=== PATIENT | female | born 1970 | race Caucasian/White ===

== ENCOUNTER 2016-06-18 15:59 | Emergency (ER) | payer MEDICAID ==
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
[2016-06-18] MEDS ORDERED: 0.9 % SODIUM CHLORIDE 1,000 ML BAG IV ONE (17:17)
[2016-06-18 17:47] LABS: BASO % 0.4 % (0-6); EOS % 4.8 % (0-6); GRAN % 57.1 % (47-80); HEMATOCRIT 33.7 % (35.0-47.0); HEMOGLOBIN 11.5 gm/dl (11.6-16.0); LYMPH % 31.6 % (16-45); MEAN CELL VOLUME 85.3 fl (81-97); MEAN CORPUSCULAR HEMOGLOBIN 29.1 pg (27-33); MEAN CORPUSCULAR HGB CONC 34.1 g/dl (32-36); MEAN PLATELET VOLUME 11.6 fl (7.4-10.4); MONO % 6.1 % (0-9); PLATELET COUNT 223 K/uL (130-400); RED BLOOD COUNT 3.95 M/uL (3.80-5.40)
[2016-06-18 17:56] LABS: ALBUMIN 4.2 gm/dL (3.5-5.0); ALKALINE PHOSPHATASE 66 U/L (38-126); ALT/SGPT 43 U/L (9-52); AST/SGOT 37 U/L (14-36); BILIRUBIN,TOTAL 0.54 mg/dL (0.2-1.3); BLOOD UREA NITROGEN 27 mg/dL (7-17); CREATININE 0.9 mg/dL (0.52-1.04); EST GLOMERULAR FILTRATION RATE > 60 ml/min; GLUCOSE,RANDOM 165 mg/dL (70-110); TOTAL PROTEIN 7.6 gm/dL (6.3-8.2)
== END 2016-06-18 19:00 | disposition home or self-care (01) ==
LOC: ER 15:59
DX: A08.4 Viral intestinal infection, unspecified (principal); E86.0 Dehydration; R42 Dizziness and giddiness; R11.0 Nausea; I50.9 Heart failure, unspecified; I10 Essential (primary) hypertension; Z87.891 Personal history of nicotine dependence; Z91.81 History of falling; E11.9 Type 2 diabetes mellitus without complications; Z79.4 Long term (current) use of insulin
CPT/HCPCS: 80048; 80076; 83735; 85025; 96360; 99284; J7030

== ENCOUNTER 2016-07-19 11:10 | Emergency (ER) | payer MEDICAID ==
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
[2016-07-19 12:28] LABS: BASO % 0.4 % (0-6); EOS % 3.2 % (0-6); GRAN % 62.6 % (47-80); HEMATOCRIT 35.3 % (35.0-47.0); HEMOGLOBIN 12.2 gm/dl (11.6-16.0); LYMPH % 28.2 % (16-45); MEAN CELL VOLUME 84.7 fl (81-97); MEAN CORPUSCULAR HEMOGLOBIN 29.3 pg (27-33); MEAN CORPUSCULAR HGB CONC 34.6 g/dl (32-36); MEAN PLATELET VOLUME 10.8 fl (7.4-10.4); MONO % 5.6 % (0-9); PLATELET COUNT 257 K/uL (130-400); RED BLOOD COUNT 4.17 M/uL (3.80-5.40); RED CELL DISTRIBUTION WIDTH 11.9 % (11.5-14.5)
[2016-07-19] MEDS: ASPIRIN 81 MG CHEWABLE TABLET PO ONE (12:29)
[2016-07-19 12:40] LABS: ANION GAP 7.8 (7-16); BLOOD UREA NITROGEN 24 mg/dL (7-17); CARBON DIOXIDE 29.2 mmol/L (22-30); CREATININE 0.9 mg/dL (0.52-1.04); EST GLOMERULAR FILTRATION RATE > 60 ml/min; GLUCOSE,RANDOM 135 mg/dL (70-110)
[2016-07-19 12:51] LABS: CKMB 0.4 ug/L (0-6)
[2016-07-19 12:52] LABS: TROPONIN I < 0.012 ng/mL (0.00-0.034)
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
== END 2016-07-19 13:23 | disposition home or self-care (01) ==
LOC: ER 11:10
DX: R55 Syncope and collapse (principal); E86.0 Dehydration; R11.0 Nausea; I42.9 Cardiomyopathy, unspecified; I10 Essential (primary) hypertension; Z87.891 Personal history of nicotine dependence; Z95.810 Presence of automatic (implantable) cardiac defibrillator
CPT/HCPCS: 80048; 82553; 84484; 85025; 85730; 93005; 93010; 99284

== ENCOUNTER 2016-09-06 12:57 | Observation (INO) | payer MEDICAID ==
[2016-09-06] MEDS ORDERED: 0.9 % SODIUM CHLORIDE 1,000 ML BAG IV ONE (13:31)
[2016-09-06] MEDS ORDERED: ONDANSETRON HCL IV 4 MG/2 ML VIAL IV ONE (13:31)
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
[2016-09-06 13:42] LABS: BASO % 0.3 % (0-6); EOS % 3.4 % (0-6); GRAN % 69.6 % (47-80); HEMATOCRIT 37.4 % (35.0-47.0); HEMOGLOBIN 12.4 gm/dl (11.6-16.0); LYMPH % 21.6 % (16-45); MEAN CELL VOLUME 83.3 fl (81-97); MEAN CORPUSCULAR HEMOGLOBIN 27.6 pg (27-33); MEAN CORPUSCULAR HGB CONC 33.2 g/dl (32-36); MEAN PLATELET VOLUME 11.5 fl (7.4-10.4); MONO % 5.1 % (0-9); PLATELET COUNT 273 K/uL (130-400); RED BLOOD COUNT 4.49 M/uL (3.80-5.40); RED CELL DISTRIBUTION WIDTH 12.4 % (11.5-14.5); WHITE BLOOD COUNT W/O DIFF 9.3 K/uL (4.2-12.2)
[2016-09-06 14:02] LABS: ALBUMIN 4.1 gm/dL (3.5-5.0); ANION GAP 12.3 (7-16); BILIRUBIN,TOTAL 0.8 mg/dL (0.2-1.3); CARBON DIOXIDE 21.7 mmol/L (22-30); CREATININE 1.1 mg/dL (0.52-1.04); TOTAL PROTEIN 7.4 gm/dL (6.3-8.2)
[2016-09-06] MEDS ORDERED: ONDANSETRON HCL IV 4 MG/2 ML VIAL IVP ONE (14:04)
[2016-09-06 14:28] LABS: URINE APPEARANCE CLEAR; URINE BILIRUBIN SMALL (NEGATIVE); URINE BLOOD TRACE-I (NEGATIVE); URINE COLOR YELLOW; URINE GLUCOSE (UA) NEGATIVE (NEGATIVE); URINE KETONE NEGATIVE (NEGATIVE); URINE LEUKOCYTE ESTERASE NEGATIVE (NEGATIVE); URINE NITRITE NEGATIVE (NEGATIVE)
[2016-09-06 14:29] LABS: HCG,QUALITATIVE URINE NEGATIVE (NEGATIVE)
[2016-09-06 14:34] LABS: URINE BACTERIA NONE SEEN; URINE EPITHELIAL CELLS NONE SEEN (FEW); URINE WBC 0 - 2 (0-2/hpf)
[2016-09-06] MEDS ORDERED: SUCRALFATE 1 G/10 ML UD PO ONE (14:48)
[2016-09-06] MEDS ORDERED: ACETAMINOPHEN 500 MG TABLET PO PRN (17:29)
[2016-09-06] MEDS ORDERED: GLIPIZIDE 5 MG TABLET PO SCH (17:29)
[2016-09-06] MEDS ORDERED: 0.9 % SODIUM CHLORIDE 1000ML 1,000 ML IV PRN ×2 (17:29→20:26)
[2016-09-06] MEDS ORDERED: ONDANSETRON HCL IV 4 MG/2 ML VIAL IVP PRN (17:29)
[2016-09-06] MEDS ORDERED: MORPHINE SULFATE 5 MG/ML PFS IVP PRN (17:30)
[2016-09-06] MEDS ORDERED: LEVEMIR FLEXTOUCH 100 UNIT/ML INSULIN PEN SQ SCH (18:00)
[2016-09-06] MEDS: DICYCLOMINE HCL 10 MG/ML AMPUL IM SCH (18:12)
[2016-09-06] MEDS: CARVEDILOL 12.5 MG TABLET PO SCH (22:32)
[2016-09-07] MEDS: DICYCLOMINE HCL 10 MG/ML AMPUL IM SCH (01:16)
[2016-09-07] MEDS ORDERED: ZINC OXIDE 28.35 GM TUBE TOP PRN (01:51)
[2016-09-07 06:37] LABS: BASO % 0.3 % (0-6); EOS % 4.5 % (0-6); GRAN % 62.8 % (47-80); HEMATOCRIT 35.7 % (35.0-47.0); HEMOGLOBIN 11.8 gm/dl (11.6-16.0); MEAN CELL VOLUME 84.4 fl (81-97); MEAN CORPUSCULAR HEMOGLOBIN 27.9 pg (27-33); MEAN CORPUSCULAR HGB CONC 33.1 g/dl (32-36); MEAN PLATELET VOLUME 11.6 fl (7.4-10.4); MONO % 5.4 % (0-9); PLATELET COUNT 238 K/uL (130-400); RED BLOOD COUNT 4.23 M/uL (3.80-5.40); RED CELL DISTRIBUTION WIDTH 12.6 % (11.5-14.5); WHITE BLOOD COUNT W/O DIFF 7.7 K/uL (4.2-12.2)
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
[2016-09-07 06:53] LABS: ALB/GLOB RATIO 1.2 (1.1-1.8); ALBUMIN 3.7 gm/dL (3.5-5.0); ALT/SGPT 77 U/L (9-52); ANION GAP 8.7 (7-16); AST/SGOT 59 U/L (14-36); BILIRUBIN,TOTAL 0.77 mg/dL (0.2-1.3); BLOOD UREA NITROGEN 29 mg/dL (7-17); CARBON DIOXIDE 21.3 mmol/L (22-30); CREATININE 0.9 mg/dL (0.52-1.04); EST GLOMERULAR FILTRATION RATE > 60 ml/min; GLUCOSE,RANDOM 91 mg/dL (70-110); TOTAL PROTEIN 6.7 gm/dL (6.3-8.2)
[2016-09-07 06:58] LABS: ALKALINE PHOSPHATASE 113 U/L (38-126)
[2016-09-07] MEDS: CARVEDILOL 12.5 MG TABLET PO SCH (09:45)
[2016-09-07] MEDS ORDERED: LANTUS SC SCH (10:00)
[2016-09-07] MEDS ORDERED: PANTOPRAZOLE SODIUM IV 40 MG VIAL IV SCH (10:00)
[2016-09-07] MEDS ORDERED: GLIPIZIDE 5 MG TABLET PO SCH (10:00)
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
[2016-09-07] MEDS: DICYCLOMINE HCL 10 MG CAPSULE PO SCH ×2 (11:42→19:09)
[2016-09-07] MEDS ORDERED: SIMETHICONE 80 MG TAB.CHEW PO ONE (13:07)
--- NOTE | 2016-09-11 07:49 | CT SCAN REPORT ---
EXAM: ABDOMEN AND PELVIS CT WITHOUT CONTRAST HISTORY: NAUSEA, VOMITING, DIARRHEA FOR THREE DAYS. PRIOR CHOLECYSTECTOMY AND APPENDECTOMY. TECHNIQUE: Contiguous axial images from the lung bases to the symphysis pubis were obtained without IV contrast. Comparison: Abdomen and pelvis CT 02/22/16. FINDINGS: The lung bases are clear. Evaluation of the solid abdominal visceral organs is compromised due to lack of IV contrast, however, the liver, spleen, kidneys, adrenals, and pancreas are unremarkable. The gallbladder is surgically absent. The visualized loops of small and large bowel are of normal caliber with no bowel wall thickening. Minimal fecal material throughout the colon. Normal appendix in the right lower quadrant. Mild aortoiliac calcification. Small, but conspicuous periaortic lymph nodes unchanged from 2014 measuring up to 9 x 9 mm likely incidental. No ascites. The osseous structures reveal no lytic or blastic lesion. IMPRESSION: 1. NO ACUTE PROCESS OF THE ABDOMEN OR PELVIS. LITTLE CHANGE FROM PRIOR STUDIES. 2. STATUS POST CHOLECYSTECTOMY. JOB NUMBER: [id number] MTDD
== END 2016-09-07 20:30 | disposition home or self-care (01) ==
LOC: ER 12:57 → MEDSURG 17:15
PROVIDERS: ADMIT Family Medicine; ATTEND Family Medicine
DX: E86.0 Dehydration (principal); K52.9 Noninfective gastroenteritis and colitis, unspecified; E11.9 Type 2 diabetes mellitus without complications; Z79.4 Long term (current) use of insulin; I42.9 Cardiomyopathy, unspecified; I50.9 Heart failure, unspecified; Z95.810 Presence of automatic (implantable) cardiac defibrillator; Z79.84 Long term (current) use of oral hypoglycemic drugs; R11.2 Nausea with vomiting, unspecified
CPT/HCPCS: 36416; 74176; 80048; 80053; 80076; 81001; 81025; 82272; 82948; 83690; 84484; 85025; 87425; 87427; 87493; 89055; 96361; 96374; 99220; 99285; C9113; J2405; J7030

== ENCOUNTER 2017-04-12 01:19 | Emergency (ER) | payer MEDICAID ==
[2017-04-12] MEDS ORDERED: 0.9 % SODIUM CHLORIDE 1,000 ML BAG IV ONE ×2 (01:27→03:20)
[2017-04-12] MEDS ORDERED: ONDANSETRON HCL IV 4 MG/2 ML VIAL IVP ONE (01:30)
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
[2017-04-12 01:48] LABS: BASO % 0.3 % (0-6); EOS % 2.9 % (0-6); GRAN % 54.6 % (47-80); HEMATOCRIT 34.5 % (35.0-47.0); HEMOGLOBIN 11.7 gm/dl (11.6-16.0); LYMPH % 36.5 % (16-45); MEAN CELL VOLUME 86.9 fl (81-97); MEAN CORPUSCULAR HEMOGLOBIN 29.5 pg (27-33); MEAN CORPUSCULAR HGB CONC 33.9 g/dl (32-36); MEAN PLATELET VOLUME 11.2 fl (7.4-10.4); MONO % 5.7 % (0-9); PLATELET COUNT 256 K/uL (130-400); RED BLOOD COUNT 3.97 M/uL (3.80-5.40); RED CELL DISTRIBUTION WIDTH 12.4 % (11.5-14.5); WHITE BLOOD COUNT W/O DIFF 8.7 K/uL (4.2-12.2)
[2017-04-12 01:57] LABS: BILIRUBIN,TOTAL < 0.20 mg/dL (0.2-1.0); BLOOD UREA NITROGEN 24 mg/dL (6-20); EST GLOMERULAR FILTRATION RATE > 60 mL/min
[2017-04-12 01:58] LABS: TOTAL PROTEIN 7.2 g/dL (6.6-8.7)
[2017-04-12 01:59] LABS: GLUCOSE,RANDOM 334 mg/dL (74-109)
[2017-04-12 02:00] LABS: INR 0.93; PARTIAL THROMBOPLASTIN TIME 23.3 SECONDS (24.5-39.1)
[2017-04-12 02:02] LABS: ALB/GLOB RATIO 1.1 (1.1-1.8); ALBUMIN 3.7 g/dL (4.0-5.0); ALKALINE PHOSPHATASE 71 U/L (35-104); ALT/SGPT 24 U/L (<33); AST/SGOT 33 U/L (10.0-35.0); LIPASE 35 U/L (13-60)
[2017-04-12 03:14] LABS: URINE APPEARANCE CLEAR; URINE BILIRUBIN NEGATIVE (NEGATIVE); URINE BLOOD SMALL (NEGATIVE); URINE COLOR YELLOW; URINE KETONE NEGATIVE (NEGATIVE); URINE LEUKOCYTE ESTERASE NEGATIVE (NEGATIVE); URINE NITRITE NEGATIVE (NEGATIVE); URINE UROBILINOGEN 0.2 E.U./dL (0.20 - 1.00)
[2017-04-12 03:15] LABS: URINE BACTERIA NONE SEEN; URINE EPITHELIAL CELLS 0 - 2 (FEW); URINE WBC 0 - 2 (0-2/hpf)
[2017-04-12 03:20] LABS: AMPHETAMINE SCREEN URINE NOT DETECTED; BARBITURATE SCREEN URINE NOT DETECTED; BENZODIAZEPINE SCREEN URINE NOT DETECTED; COCAINE SCREEN URINE NOT DETECTED; METHADONE SCREEN URINE NOT DETECTED; METHAMPHETAMINE SCREEN NOT DETECTED; OPIATE SCREEN URINE NOT DETECTED; OXYCODONE SCREEN URINE NOT DETECTED; PHENCYCLIDINE SCREEN URINE NOT DETECTED; PROPOXYPHENE SCREEN URINE NOT DETECTED; THC SCREEN URINE NOT DETECTED; TRICYCLIC ANTIDEPRESSANT SCRN NOT DETECTED
[2017-04-12] MEDS ORDERED: TRAMADOL HCL 50 MG TABLET PO ONE (03:26)
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
--- NOTE | 2017-04-12 09:53 | RADIOLOGY REPORT ---
EXAM: LEFT FOOT HISTORY: PAIN. TECHNIQUE: Three views of the left foot were obtained. Comparison: None. Encounter: Initial. FINDINGS: Negative for acute fracture or dislocation. Hallux valgus deformity with minor degenerative change of the great toe. Small calcaneal spurs. The soft tissues are unremarkable. IMPRESSION: NO ACUTE OSSEOUS ABNORMALITY. JOB NUMBER: [id number] [facility]
--- NOTE | 2017-04-12 10:16 | CT SCAN REPORT ---
EXAM: CT OF THE ABDOMEN AND PELVIS WITHOUT CONTRAST HISTORY: NAUSEA. TECHNIQUE: CT of the abdomen and pelvis was performed without oral or IV contrast. This limits evaluation of the solid visceral organs and bowel. Comparison: 09/06/16 CT. FINDINGS: Limited evaluation of the lung bases is unremarkable. The osseous structures are grossly intact. The liver, spleen, adrenal glands, pancreas, and kidneys are unremarkable. Status post cholecystectomy. No gross evidence for bowel obstruction. Normal appendix. Abundant stool in the colon. No free air or free fluid. IMPRESSION: NEGATIVE FOR ACUTE INTRAABDOMINAL/PELVIC PROCESS. J[facility]BER: [id number] [facility]
--- NOTE | 2017-04-12 10:18 | CT SCAN REPORT ---
EXAM: CT OF THE CERVICAL SPINE HISTORY: JAW PAIN AND HEAD PAIN. TECHNIQUE: Axial CT images of the cervical spine were obtained with coronal and sagittal reconstructions. Comparison: MRI cervical spine 04/17/15. FINDINGS: Evaluation of spinal canal contents limits due to CT technique, however, the vertebral body height and alignment is preserved. The atlantoaxial space is preserved. The lateral masses are not displaced. The disk spaces are maintained. The surrounding soft tissues are unremarkable. IMPRESSION: UNREMARKABLE CT OF THE CERVICAL SPINE. [facility]BER: [id number] [facility]
--- NOTE | 2017-04-12 10:20 | CT SCAN REPORT ---
EXAM: CT OF THE BRAIN WITHOUT CONTRAST HISTORY: HEADACHE. TECHNIQUE: CT of the brain without contrast was obtained. Comparison: None. FINDINGS: The globes are intact. There is a polyp of the left maxillary sinus. No displaced or depressed skull fracture. No intra or extraaxial hemorrhage. CT is limited for the evaluation of acute infarct. No CT evidence for large or territorial acute infarct. No mass or midline shift. IMPRESSION: NEGATIVE FOR ACUTE INTRACRANIAL ABNORMALITY. [facility]BER: [id number] [facility]
--- NOTE | 2017-04-12 10:23 | CT SCAN REPORT ---
EXAM: CT OF THE FACIAL BONES HISTORY: PAIN. TECHNIQUE: Axial CT images of the facial bones were obtained with coronal and sagittal reconstructions. Comparison: None. FINDINGS: The globes are intact. There is a polyp of the left maxillary sinus. The paranasal sinuses are otherwise well aerated. Hypoplasia of the frontal sinuses is noted. There are no air fluid levels. No bony destructive or expansile process. Negative for facial bone fracture. The surrounding soft tissues are unremarkable. Multiple dental caries are noted. Correlate with dental exam. IMPRESSION: NEGATIVE FOR FACIAL BONE FRACTURE. MULTIPLE DENTAL CARIES. POLYP OF THE LEFT MAXILLARY SINUS. [facility]BER: [id number] [facility]
== END 2017-04-12 04:00 | disposition home or self-care (01) ==
LOC: ER 01:19
DX: S92.902A Unspecified fracture of left foot, initial encounter for closed fracture (principal); S00.93XA Contusion of unspecified part of head, initial encounter; S20.221A Contusion of right back wall of thorax, initial encounter; S00.83XA Contusion of other part of head, initial encounter; S10.93XA Contusion of unspecified part of neck, initial encounter; E83.119 Hemochromatosis, unspecified; R11.0 Nausea; I50.9 Heart failure, unspecified; I10 Essential (primary) hypertension; E11.9 Type 2 diabetes mellitus without complications; Z79.4 Long term (current) use of insulin; Z87.891 Personal history of nicotine dependence; E86.0 Dehydration; W10.9XXA Fall (on) (from) unspecified stairs and steps, initial encounter; Y92.009 Unspecified place in unspecified non-institutional (private) residence as the place of occurrence of the external cause; Z95.0 Presence of cardiac pacemaker
CPT/HCPCS: 99284 ×2; 96374; 96361; 83690; 85025; 85730; 85610; 80053; 81001; 80305; 73630; 72125; 70450; 70486; 74176; 93005; 93010; J2405; J7030

== ENCOUNTER 2017-11-11 17:25 | Emergency (ER) | payer MEDICAID ==
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
[2017-11-11 18:45] LABS: URINE APPEARANCE CLEAR; URINE BILIRUBIN NEGATIVE (NEGATIVE); URINE BLOOD SMALL (NEGATIVE); URINE COLOR YELLOW; URINE GLUCOSE (UA) NEGATIVE (NEGATIVE); URINE KETONE NEGATIVE (NEGATIVE); URINE LEUKOCYTE ESTERASE SMALL (NEGATIVE); URINE NITRITE NEGATIVE (NEGATIVE); URINE UROBILINOGEN 0.2 E.U./dL (0.20 - 1.00)
[2017-11-11 18:59] LABS: BLOOD UREA NITROGEN 24 mg/dL (6-20); CREATININE 0.8 mg/dL (0.5-0.9); EST GLOMERULAR FILTRATION RATE > 60 mL/min
[2017-11-11 19:00] LABS: TOTAL PROTEIN 7.4 g/dL (6.6-8.7)
[2017-11-11 19:02] LABS: GLUCOSE,RANDOM 187 mg/dL (74-109)
[2017-11-11 19:04] LABS: ALB/GLOB RATIO 1.2 (1.1-1.8); ALBUMIN 4.1 g/dL (4.0-5.0); ALT/SGPT 30 U/L (<33); AST/SGOT 22 U/L (10.0-35.0)
[2017-11-11 19:05] LABS: ALKALINE PHOSPHATASE 79 U/L (35-104)
[2017-11-11 19:09] LABS: BASO % 0.5 % (0-6); EOS % 3.1 % (0-6); GRAN % 58.6 % (47-80); HEMATOCRIT 40.1 % (35.0-47.0); HEMOGLOBIN 13.9 gm/dl (11.6-16.0); LYMPH % 32.5 % (16-45); MEAN CELL VOLUME 86.1 fl (81-97); MEAN CORPUSCULAR HEMOGLOBIN 29.8 pg (27-33); MEAN CORPUSCULAR HGB CONC 34.7 g/dl (32-36); MEAN PLATELET VOLUME 11.2 fl (7.4-10.4); MONO % 5.3 % (0-9); PLATELET COUNT 258 K/uL (130-400); RED BLOOD COUNT 4.66 M/uL (3.80-5.40); RED CELL DISTRIBUTION WIDTH 12.6 % (11.5-14.5); WHITE BLOOD COUNT W/O DIFF 8.5 K/uL (4.2-12.2)
[2017-11-11 19:19] LABS: URINE RBC 0 - 2 (NONE SEEN)
[2017-11-11 19:20] LABS: URINE BACTERIA 1+
[2017-11-11] MEDS ORDERED: CEPHALEXIN 500 MG CAPSULE PO STA (19:27)
== END 2017-11-11 19:34 | disposition home or self-care (01) ==
LOC: ER 17:25
DX: N30.00 Acute cystitis without hematuria (principal); R51 Headache; E83.119 Hemochromatosis, unspecified; I50.9 Heart failure, unspecified; E11.9 Type 2 diabetes mellitus without complications; I10 Essential (primary) hypertension; Z87.891 Personal history of nicotine dependence; Z95.810 Presence of automatic (implantable) cardiac defibrillator
CPT/HCPCS: 80053; 81001; 82375; 85025; 99283; 99284

== ENCOUNTER 2019-01-16 21:47 | Emergency (ER) | payer MEDICARE ==
[2019-01-16] MEDS ORDERED: 0.9 % SODIUM CHLORIDE 1000ML 1,000 ML IV SCH (22:00)
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
[2019-01-16 22:15] LABS: URINE APPEARANCE CLEAR; URINE BILIRUBIN NEGATIVE (NEGATIVE); URINE BLOOD NEGATIVE (NEGATIVE); URINE COLOR YELLOW; URINE KETONE NEGATIVE (NEGATIVE); URINE LEUKOCYTE ESTERASE NEGATIVE (NEGATIVE); URINE NITRITE NEGATIVE (NEGATIVE); URINE UROBILINOGEN 0.2 E.U./dL (0.20 - 1.00)
[2019-01-16 22:17] LABS: URINE GLUCOSE (UA) >=1000 mg/dL (NEGATIVE)
[2019-01-16 22:23] LABS: URINE EPITHELIAL CELLS 0 - 2 (FEW); URINE HYALINE CAST 0 - 5 /lpf; URINE RBC 0 - 2 (NONE SEEN); URINE WBC 0 - 2 (0-2/hpf)
[2019-01-16 22:34] LABS: BASO % 0.2 % (0-6); EOS % 3.7 % (0-6); GRAN % 59.1 % (47-80); HEMATOCRIT 35.8 % (35.0-47.0); HEMOGLOBIN 12.1 gm/dl (11.6-16.0); LYMPH % 32.2 % (16-45); MEAN CELL VOLUME 86.7 fl (81-97); MEAN CORPUSCULAR HEMOGLOBIN 29.3 pg (27-33); MEAN CORPUSCULAR HGB CONC 33.8 g/dl (32-36); MEAN PLATELET VOLUME 11.7 fl (7.4-10.4); MONO % 4.8 % (0-9); PLATELET COUNT 225 K/uL (130-400); RED BLOOD COUNT 4.13 M/uL (3.80-5.40); RED CELL DISTRIBUTION WIDTH 12.4 % (11.5-14.5); WHITE BLOOD COUNT W/O DIFF 8.6 K/uL (4.2-12.2)
[2019-01-16 22:50] LABS: ACETONE,SERUM NEGATIVE (NEGATIVE)
[2019-01-16 22:54] LABS: BLOOD UREA NITROGEN 29 mg/dL (6-20); CREATININE 1.2 mg/dL (0.5-0.9); EST GLOMERULAR FILTRATION RATE 51 mL/min
[2019-01-16 23:10] LABS: GLUCOSE,RANDOM 525 mg/dL (74-109)
[2019-01-16] MEDS ORDERED: HUMULIN R 100 UNIT/ML VIAL IV ONE (23:10)
== END 2019-01-17 00:12 | disposition home or self-care (01) ==
LOC: ER 21:47
DX: E11.65 Type 2 diabetes mellitus with hyperglycemia (principal); R51 Headache; I10 Essential (primary) hypertension; Z87.891 Personal history of nicotine dependence; I50.9 Heart failure, unspecified; Z95.0 Presence of cardiac pacemaker; Z79.4 Long term (current) use of insulin
CPT/HCPCS: 36416; 80048; 81001; 82009; 82800; 82948; 85025; 96374; 99284; J7030